=== PATIENT | female | born 1970 | race African-American/Black ===

== ENCOUNTER 2017-08-24 20:28 | Emergency (ER) | payer MEDICAID ==
[2017-08-24 20:53] VITALS: BP 116/70
[2017-08-24 23:00] LABS: APPEARANCE,URINE SLIGHTLY-CLOUDY; BILIRUBIN,URINE NEGATIVE (NEGATIVE); COLOR,URINE YELLOW; GLUCOSE, URINE NEGATIVE (NEGATIVE); KETONES,URINE NEGATIVE (NEGATIVE); LEUKOCYTE ESTERASE,URINE NEGATIVE (NEGATIVE); NITRITE,URINE NEGATIVE (NEGATIVE); PROTEIN,URINE NEGATIVE (NEGATIVE); URINE SPECIFIC GRAVITY 1.029; UROBILINOGEN,URINE NEGATIVE mg/dL (<2.0)
--- NOTE | 2017-08-25 00:05 | ER Document Report ---
ED General - General Chief Complaint: Low Back Pain Stated Complaint: PELVIC AND BACK PAIN Time Seen by Provider: 08/24/17 22:34 Notes: Patient is 47-year-old female presents for complaints of some irritation in the vaginal area. She says that she frequently gets back to infections and sometimes use infections this area. She does have a history of HIV. She says her viral loads have been nondetectable and her CD4 counts have been good. She said she follows closely with her infectious disease doctor and takes her medications as prescribed. Denies abdominal pain. No fevers. No vomiting. No other complaints at this time. Dysuria or urinary frequency. TRAVEL OUTSIDE OF THE [place] IN LAST 30 DAYS: No Past Medical History - Social History Smoking Status: Never Smoker Chew tobacco use (# tins/day): No Frequency of alcohol use: None Drug Abuse: None Family History: Reviewed & Not Pertinent Patient has suicidal ideation: No Patient has homicidal ideation: No Renal/ Medical History: Denies: Hx Peritoneal Dialysis Past Surgical History: Reports: Hx Appendectomy, Hx Cholecystectomy Review of Systems - Review of Systems Notes: My Normal Review Basic REVIEW OF SYSTEMS: CONSTITUTIONAL : Denies fever, chills, or sweats. Denies recent illness. RESPIRATORY: Denies cough, cold, or chest congestion. Denies shortness of breath, difficulty breathing, or wheezing. GASTROINTESTINAL: Denies abdominal pain. Denies nausea, vomiting, or diarrhea. Denies constipation. Last BM: GENITOURINARY: Denies difficulty urinating, painful urination, burning, frequency, or blood in urine. FEMALE GENITOURINARY: discomfort in the vaginal area. MUSCULOSKELETAL: Denies neck or back pain or joint pain or swelling. ALL OTHER SYSTEMS REVIEWED AND NEGATIVE. Physical Exam - Vital signs Vitals: Temp Pulse Resp BP Pulse Ox 98.9 F 86 18 116/70 98 08/24/17 20:52 08/24/17 20:52 08/24/17 20:52 08/24/17 20:52 08/24/17 20:52 - Notes Notes: General Appearance: Well nourished, alert, cooperative, no acute distress, no obvious discomfort. Vitals: reviewed, See vital signs table. Eyes: PERRL, EOMI, Conjuctiva clear Lungs: No wheezing, No rales, No rhonci, No accessory muscle use, good air exchange bilaterally. Heart: Normal rate, Regular rythm, No murmur, no rub Abdomen: Normal BS, soft, No rigidity, No abdominal tenderness, No guarding, no rebound, no abdominal masses, no organomegaly Female genital: Pending Extremities: strength 5/5 in all extremities, good pulses in all extremities, Skin: warm, dry, appropriate color, no rash Neuro: speech clear, oriented x 3, normal affect, responds appropriately to questions. Course - Re-evaluation Re-evalutation: 08/25/17 00:03 I just came out of a room in which we had to terminate her efforts of cardiac arrest. Nurse just told me that Mrs. Monreal just eloped. She told me that Ms. Monreal was upset that I was not in the room with her during her pelvic exam. The nurse did inform Ms. Monreal that I was helping care for patient that was in cardiac arrest and that that takes priority over the pelvic exam and that I will try to be with her soon as possible. The nurse said the patient was not happy with this and therefore eloped. - Vital Signs Vital signs: Temp Pulse Resp BP Pulse Ox 98.9 F 86 18 116/70 98 08/24/17 20:52 08/24/17 20:52 08/24/17 20:52 08/24/17 20:52 08/24/17 20:52 Discharge - Discharge Clinical Impression: elopement, Vaginal pain, HIV (human immunodeficiency virus infection) Disposition: ELOPED
== END 2017-08-25 00:05 | disposition left against medical advice (07) ==
LOC: ER 20:28
DX: R10.2 Pelvic and perineal pain (principal); Z21 Asymptomatic human immunodeficiency virus [HIV] infection status; Z79.899 Other long term (current) drug therapy; Z90.49 Acquired absence of other specified parts of digestive tract; Z53.29 Procedure and treatment not carried out because of patient's decision for other reasons
CPT/HCPCS: 81001; 81025; 99281

== ENCOUNTER 2017-08-25 00:41 | Emergency (ER) | payer MEDICAID ==
[2017-08-25 01:23] VITALS: BP 142/87
--- NOTE | 2017-08-25 02:10 | ER Document Report ---
HPI - HPI Pain Level: 4 Context: Patient is a 47-year-old female that comes emergency department for chief complaint of pelvic discomfort with vaginal discharge. Symptoms present for slightly over 2 weeks. She denies dysuria, flank pain, nausea vomiting, fever or chills. She is sexually active, states she only uses condoms. She has a history of HIV, on medications, states her CD4 counts are normal. - REPRODUCTIVE LMP: 08-01-18 Past Medical History - General Information source: Patient - Social History Smoking Status: Never Smoker Frequency of alcohol use: None Drug Abuse: None Lives with: Family Family History: Reviewed & Not Pertinent - Medical History Medical History: Negative Renal/ Medical History: Denies: Hx Peritoneal Dialysis Past Surgical History: Reports: Hx Appendectomy, Hx Cholecystectomy - Immunizations Immunizations up to date: Yes Hx Diphtheria, Pertussis, Tetanus Vaccination: Yes Vertical Provider Document - CONSTITUTIONAL General Appearance: WD/WN, No Apparent Distress - INFECTION CONTROL TRAVEL OUTSIDE OF THE [place] IN LAST 30 DAYS: No - HEENT HEENT: Atraumatic, Normocephalic - NECK Neck: Normal Inspection - RESPIRATORY Respiratory: Breath Sounds Normal, No Respiratory Distress O2 Sat by Pulse Oximetry: 100 - CARDIOVASCULAR Cardiovascular: Regular Rate, Regular Rhythm - GI/ABDOMEN Gastrointestinal: Abdomen Soft, Abdomen Non-Tender. negative: Abdomen Tender - REPRODUCTIVE Female Genitalia: Normal Inspection Notes: Pelvic examination showing moderate amount of whitish discharge, no lesions, unremarkable external and internal pelvic exam otherwise, no cervical motion tenderness. METHODS EXAMINER Otoniel present during examination. - BACK Back: Normal Inspection - NEURO Level of Consciousness: Awake, Alert, Appropriate - DERM Integumentary: Warm, Dry, No Rash Course - Re-evaluation Re-evalutation: Urinalysis from earlier today showed normal urine and negative test. Examination showing discharge, no abdominal tenderness externally, no cervical motion tenderness. Treating patient for potential pelvic infection. She states she has symptoms of early BV, has had this many times, agreed to cover her with flagyl as well. Discussed follow-up and return precautions, patient states understanding and agreement. - Vital Signs Vital signs: Temp Pulse Resp BP Pulse Ox 98.7 F 115 H 20 142/87 H 100 08/25/17 00:55 08/25/17 00:55 08/25/17 00:55 08/25/17 00:55 08/25/17 00:55 Discharge - Discharge Clinical Impression: Vaginal discharge, Pelvic pain Condition: Stable Disposition: HOME, SELF-CARE Additional Instructions: You are being covered for a pelvic infection. Follow-up with primary care. Return for any concerning or worsening symptoms including fever, nausea or vomiting, severe pain, or any other concerning symptoms. Prescriptions: Metronidazole [Flagyl 500 mg Tablet] 500 mg PO BID #14 tablet
[2017-08-25 02:33] LABS: RBCS (WET MOUNT) RARE RBCS SEEN; T.VAGINALIS (WET MOUNT) NO TRICHOMONAS SEEN; WBCS (WET MOUNT) 1+ WBCS SEEN; YEAST (WET MOUNT) NO YEAST SEEN
[2017-08-25] MEDS ORDERED: AZITHROMYCIN 250 MG TABLET PO ONE (02:48)
[2017-08-25] MEDS ORDERED: CEFTRIAXONE INJ 250 MG VIAL IM ONE (02:48)
[2017-08-25] MEDS ORDERED: LIDOCAINE 1% INJ-PF (10 MG/ML) 30 ML SDV INJ ONE (02:48)
[2017-08-25] MEDS ORDERED: ONDANSETRON 4 MG TAB.RAPDIS PO ONE (02:52)
[2017-08-25] MEDS ORDERED: ONDANSETRON 4 MG TAB.RAPDIS ONE (02:55)
[2017-08-25 03:58] LABS: CHLAM PCR NOT DETECTED (NOT DETECT); GON PCR NOT DETECTED (NOT DETECT)
== END 2017-08-25 03:07 | disposition home or self-care (01) ==
LOC: ER 00:41
DX: R10.2 Pelvic and perineal pain (principal); N89.8 Other specified noninflammatory disorders of vagina; Z21 Asymptomatic human immunodeficiency virus [HIV] infection status; Z79.899 Other long term (current) drug therapy; Z90.49 Acquired absence of other specified parts of digestive tract
CPT/HCPCS: 99284; 96372; 87210; 87491; 87591; S0119; J3490; J0696

== ENCOUNTER 2017-08-28 00:40 | Emergency (ER) | payer SELFPAY ==
[2017-08-28] MEDS ORDERED: HYDROCODONE/ACETAMINOPHEN 5-325 MG TABLET PO ONE (01:19)
[2017-08-28] MEDS ORDERED: ONDANSETRON 4 MG TAB.RAPDIS PO ONE (01:19)
[2017-08-28] MEDS ORDERED: HYDROCODONE/ACETAMINOPHEN 5-325 MG (6 TAB/ER DISP) PO PRN (01:19)
[2017-08-28] MEDS ORDERED: ONDANSETRON ODT 4 MG TAB (6 TAB/ER DISP) PO PRN (01:19)
[2017-08-28] MEDS ORDERED: PENICILLIN V POTASSIUM 500 MG TABLET PO ONE (01:19)
--- NOTE | 2017-08-28 01:23 | ER Document Report ---
HPI - HPI Patient complains to provider of: dental pain, nausea Pain Level: 4 Context: Patient is a 47-year-old female who comes emergency department for 2 complaints. First complaint is that she was given Flagyl for bacterial vaginosis and even though the discharge has cleared up and the cramping has stopped, she cannot complete her regimen because it makes her too nauseated. She requests nausea medication and a different form of medication. Second complaint is that she is started expressing dental pain, she has known dental caries, she has a dentist back home but she is down here visiting to care for her mother temporarily. She denies facial swelling, sore throat, fever, neck pain, abdominal pain, headache. Past Medical History - General Information source: Patient - Social History Smoking Status: Former Smoker Frequency of alcohol use: None Drug Abuse: None Lives with: Family Family History: Reviewed & Not Pertinent Renal/ Medical History: Denies: Hx Peritoneal Dialysis Infectious Medical History: Reports: Hx HIV Past Surgical History: Reports: Hx Appendectomy, Hx Cholecystectomy - Immunizations Immunizations up to date: Yes Hx Diphtheria, Pertussis, Tetanus Vaccination: Yes Vertical Provider Document - CONSTITUTIONAL General Appearance: WD/WN, No Apparent Distress - INFECTION CONTROL TRAVEL OUTSIDE OF THE [place] IN LAST 30 DAYS: No - HEENT HEENT: Atraumatic, Normocephalic Mouth Diagram: 1 - Dental caries with nearby erythematous gumline, no palpable or visible abscess, normal oral exam otherwise - RESPIRATORY Respiratory: Breath Sounds Normal, No Respiratory Distress O2 Sat by Pulse Oximetry: 99 - CARDIOVASCULAR Cardiovascular: Regular Rate, Regular Rhythm - GI/ABDOMEN Gastrointestinal: Abdomen Soft, Abdomen Non-Tender - BACK Back: Normal Inspection - MUSCULOSKELETAL/EXTREMETIES Musculoskeletal/Extremeties: MAEW, FROM, Non-Tender - NEURO Level of Consciousness: Awake, Alert, Appropriate - DERM Integumentary: Warm, Dry, No Rash Course - Vital Signs Vital signs: Temp Pulse Resp BP Pulse Ox 98.3 F 84 20 130/83 H 99 08/28/17 01:00 08/28/17 01:00 08/28/17 01:00 08/28/17 01:00 08/28/17 01:00 Discharge - Discharge Clinical Impression: Nausea, Dental infection Medication side effect Qualifiers: Encounter type: initial encounter Qualified Code(s): T88.7XXA - Unspecified adverse effect of drug or medicament, initial encounter Condition: Stable Disposition: HOME, SELF-CARE Additional Instructions: Your examination indicates a dental infection but no drainable abscess is seen at this time. Take the Pen-V K antibiotic as prescribed, after completion take Diflucan to avoid yeast infection. Stop taking the Flagyl, use the topical instead, use the given nausea medicine at home if needed for now. Follow-up with the dentist for your teeth for additional management. Return for any concerning symptoms including swelling of the mouth or face, fever, or any other concerning symptoms. Prescriptions: Fluconazole [Diflucan] 150 mg PO ONCE PRN #1 tablet PRN Reason: Metronidazole [Metrogel-Vaginal] 70 gm VG ASDIR #1 gel.w.appl Penicillin V Potassium [Penicillin Vk 500 mg Tablet] 500 mg PO BID #20 tablet
[2017-08-28 02:22] VITALS: BP 125/83
== END 2017-08-28 02:22 | disposition home or self-care (01) ==
LOC: ER 00:40
DX: K04.7 Periapical abscess without sinus (principal); T88.7XXA Unspecified adverse effect of drug or medicament, initial encounter; R11.0 Nausea; K08.89 Other specified disorders of teeth and supporting structures; K02.9 Dental caries, unspecified; Z87.891 Personal history of nicotine dependence
CPT/HCPCS: 99283; S0119